=== PATIENT | female | born 1975 | race Caucasian/White ===

== ENCOUNTER 2025-06-07 13:08 | Emergency (ER) | payer BC, SELFPAY ==
--- OUTSIDE RECORDS SUMMARY | 2025-06-07 13:11 | XMS_ITS | Clinical Summary ---
Author Organization [facility] Address [address] [place] [address] Phone Care Team Providers Care Electronics Tech Name Role Phone Provider, None Primary Care Provider Unavailabl e Social History Tobacco Use Types Packs/Day Years Used Date Smoking Tobacco: Never Assessed Comments No Sex and Gender Information Value Date Recorded Sex Assigned at Not on file Legal Sex Female 10:22 PM CDT Gender Identity Not on file Sexual Orientation Not on file Plan of Treatment Health Maintenance Due Date Last Done Comments Hepatitis C Virus (HCV) Screening 1973 TdaP Immunization 1973 Hepatitis B Immunization (1 of 3 - 19+ 3-dose series) 02/12/1992 Colonoscopy 2018 Colorectal Cancer Screening 2018 Cologuard 2023 Immunochemical Fecal Occult Blood 2023 Pneumococcal Immunization (5 0+ years) (1 of 1 - PCV) 2023 Zoster Immunization (1 of 2) 2023 SARS-COV-2 Immunization (1 - 2023- season) 2024 Influenza Immunization (Seas on Ended) 2025 Respiratory Syncytial Virus (RSV) Immunization (Adult) (1 - 1-dose 75+ series) 02/12/2048 Discussion re Starting/Frequ ency of Mammograms Discontinued 09/16/2016 Mammogram Discontinued 09/16/2016 Human Papillomavirus (HPV) Immunization Aged Out No longer eligible b ased on patient's age to complete this topic Meningococcal Immunization (ACWY) Aged Out No longer eligible based on patient's age to complete this topic Rotavirus Immunization Aged Out No lo nger eligible based on patient's age to complete this topic Procedures Procedure Name Priority Date/Time Associated Diagnosis Comments MARIO SCREENING BILATERAL DIGITAL W CAD Routine 09/16/2016 5:46 PM CDT Visit for screening mammogram from Last 3 Months or Most Recently Relevant to Health Maintenance Results * MARIO SCREENING BILATERAL DIGITAL W CAD (09/16/2016 5:46 PM CDT) Anatomical Region Laterality Modality breast Bilateral Mammography 09/16/2016 5:35 PM CDT Narrative 09/28/2016 4:36 PM RUG INSPECTOR HELPER - MARIO SCREENING BILATERAL DIGITAL W CAD BILATERAL DIGITAL SCREENING MAMMOGRAM WITH CAD WITH MEDIOLATERAL OBLIQUE CRANIOCAUDAL: 09/16/2016 The study was acquired using digital technology and interpreted from soft copy. Current study was also evaluated with ICAD version 7.2. CLINICAL: Routine screening. Patient has no complaints. No personal history of cancer. No family history of breast cancer. COMPARISONS: Comparison is made to exams dated: 04/16/2014 and 04/09/2014 [facility]. BREAST TISSUE: The tissue of both breasts is predominantly fatty. FINDINGS: There are stable patchy benign densities in both breasts. No significant masses, calcifications, or other findings are seen in either breast. There has been no significant interval change. IMPRESSION: BI-RAD 2 BENIGN There is no mammographic evidence of malignancy. A 1 year screening mammogram is recommended. The patient has been or will be contacted. The patient will be entered into a reminder system with a target due date of 1 year for her next screening exam. Electronically signed by: María Lopez M.D. pw/:09/28/2016 15:15:42 Seasonal Clerk: Lorenza Yee(Hope), [facility] letter sent: Normal Exam Reading location: [facility] BI-RADS: 2 Benign Procedure Note María Lopez MD - 09/28/2016 - MARIO SCREENING BILATERAL DIGITAL W CAD BILATERAL DIGITAL SCREENING MAMMOGRAM WITH CAD WITH MEDIOLATERAL OBLIQUE CRANIOCAUDAL: 09/16/2016 The study was acquired using digital technology and interpreted from soft copy. Current study was also evaluated with ICAD version 7.2. CLINICAL: Routine screening. Patient has no complaints. No personal history of cancer. No family history of breast cancer. COMPARISONS: Comparison is made to exams dated: 04/16/2014 and 04/09/2014 [facility]. BREAST TISSUE: The tissue of both breasts is predominantly fatty. FINDINGS: There are stable patchy benign densities in both breasts. No significant masses, calcifications, or other findings are seen in either breast. There has been no significant interval change. IMPRESSION: BI-RAD 2 BENIGN There is no mammographic evidence of malignancy. A 1 year screening mammogram is recommended. The patient has been or will be contacted. The patient will be entered into a reminder system with a target due date of 1 year for her next screening exam. Electronically signed by: María Lopez M.D. pw/:09/28/2016 15:15:42 Seasonal Clerk: Lorenza Yee(R), [facility] letter sent: Normal Exam Reading location: [facility] BI-RADS: 2 Benign us Missy Sophie Wu MD IMG MAMMO ALLY DAVILA Final Result from Last 3 Months or Most Recently Relevant to Health Maintenance Care Teams Electronics Tech Relationship Specialty Start Date End Date Provider, None [place] PCP - General 09/13/16
--- OUTSIDE RECORDS SUMMARY | 2025-06-07 13:11 | XMS_ITS | Referral Summary ---
Author Organization [facility] Address [address] [place] [address] Care Team Providers Care Parole Hearing Officer Name Role Phone Demetrius Meadows MD Primary Care Provider [phone] Allergies Active Allergy Reactions Criticality Noted Date Comments Glatiramer Angioedema,Rash High 05/18/2018 Gadolinium-Containing Contrast Media Unknown 04/05/2019 Glatiramer (Copolymer 1) Angioedema,Rash High 2017 Medications multivitamin with iron tablet Take 1 tablet by mouth daily Active cetirizine (ZyrTEC) 10 mg tablet Take 1 tablet (10 mg total) by mouth daily Active montelukast (SINGULAIR) 10 mg tabletIndicatio ns:Cough Take 1 tablet (10 mg total) by mouth nightly 90 tablet 3 2 Active triamcinolone (KENALOG) 0.1 % cream APPLY TO AFFECTED AREA 1-2 TIMES DAILY NEEDED. AVOID FACE AND GROIN. 80 g 14 2 Active fluticasone furoate-vilante roL (Breo Ellipta) 200-25 mcg/dose diskus inhalerIndicati ons:Cough INHALE 1 PUFF DAILY RINSE MOUTH WITH WATER AFTER USE. DO NOT SWALLOW. 60 each 3 Active clobetasoL (TEMOVATE) 0.05 % ointmentIndicat ions:Chronic vulvitis APPLY TOPICALLY 2 (TWO) TIMES A WEEK 30 g 4 Active amantadine (SYMMETREL) 100 mg capsule 4 Active loteprednol (LOTEMAX) 0.5 % ophthalmic suspension 4 Active moxifloxacin (VIGAMOX) 0.5 % ophthalmic solution 4 Active fluticasone propionate (FLONASE) 50 mcg/actuation nasal spray Administer 2 sprays into each nostril daily 3 each 3 4 Active levothyroxine (SYNTHROID) 50 mcg tablet Take 1 tablet (50 mcg total) by mouth bag maker before breakfast 90 tablet [address] (CYMBALTA) 60 mg capsule Take 1 capsule (60 mg total) by mouth 2 (two) times a day 180 capsule 3 5 Active buPROPion XL (WELLBUTRIN XL) 300 mg 24 hr tablet Take 1 tablet (300 mg total) by mouth daily 90 tablet 3 5 Active ARIPiprazole (ABILIFY) 10 mg tablet Take 1 tablet (10 mg total) by mouth daily 90 tablet 3 5 Active Active Problems Problem Noted Date Diagnosed Date Screening for colon cancer 09/19/2024 Physical exam, annual 08/17/2024 Assessment & Plan (08/17/2024 8:54 AM CDT): Preventive exam; reviewed recommended preventive screenings and vaccinations. Encourage annual flu vaccine. -referral placed for screening colonoscopy. -Following with manager gyn annually -current on mammogram Thyroid nodule 05/21/2022 Low CD19 cell count determined by flow cytometry 03/19/2022 Upper respiratory infection, viral 01/05/2022 Assessment & Plan (01/05/2022 9:37 AM TALENT ACQUISITION PARTNER): Rapid flu swab: NEG as well as NEG rapid Covid test. You will need to take over the counter medications: Advise to use Mucinex and nasal saline to help with congestions and mucus. Add flonase 1 spray per nostril daily for the next 2 weeks. Continue Zyrtec daily for nasal drip Mucinex for chest congestion Sudafed for head/nasal congestion Drink plenty of fluids. May take Tylenol for pain. Contact PCP if not better in a few days or if getting worse. If symptoms worsen or you experience shortness of breath, return to clinic or go to ER Sore throat 01/05/2022 Assessment & Plan (01/05/2022 9:39 AM TALENT ACQUISITION PARTNER): NEG rapid strep test in office. Will send out for culture. Mrs Rouse aware to check mychart later this week for results/msg from me. Tylenol or ibuprofen for fever/pain Gargle with warm salt water (1tsp salt/1 cup water) Suck on ice chips, popsicles, cough drops, or throat lozenges May use otc chloraseptic spray. Reviewed red flags; to go to ER if any drooling or difficulty breathing. Push fluids, relative rest. Do not share food, drinks, or utensils Acute non-recurrent pansinusitis 01/14/2020 Acute rhinitis 01/14/2020 Assessment & Plan (01/14/2020 1:06 PM TALENT ACQUISITION PARTNER): Advised on the use of [id number] Flonase and antihistamines. Cervical intraepithelial neoplasia grade 2 10/23 Multiple sclerosis, relapsing-remitting 08/24/20 18 Assessment & Plan (08/17/2024 8:38 AM CDT): Managed by Neurology, holding off on surveillance brain MRI this year. Continues Ocrevus Post-dural puncture headache 11/08/2017 Spondylolisthesis, lumbosacral region 07/21/2017 BMI 29.0-29.9,adult 07/19/2017 Encounter for screening for other disorder 07/19 Fibromyalgia 01/29/2016 Acute bronchitis 01/29/2016 Allergic rhinitis due to pollen 01/29/2016 Assessment & Plan (08/17/2024 9:00 AM CDT): Recommended sinus irrigation, suggested using NeilMed sinus rinse. To use distilled water only. Also recommended Flonase nasal spray, 1-2 sprays 1-2 times per day. Avoid Afrin/oxymetazoline. Patient to notify office if no improvement in symptoms and can prescribe antibiotic at that time. She has now had intermittent congestion > 1 month. Generalized anxiety disorder 01/29/2016 Major depressive disorder with single episode Assessment & Plan (08/17/2024 8:53 AM CDT): Moods are stable; continue duloxetine and bupropion. No changes made today. Other mucopurulent conjunctivitis, bilateral 08/2016 Perimenopause 11/05/2015 Low back pain 02/17/2015 Leiomyoma of uterus, unspecified 08/22/2013 Resolved Problems Problem Noted Date Diagnosed Date Resolved Date Postcoital bleeding 10/06/2016 09/14/20 18 Left lower quadrant pain 02/17/2015 Immunizations Immunization Administration Dates Next Due Hep A, Adult 08/03/2010, 0,10/10/2008,10/10 Influenza, Quadrivalent, Spl it, Preservative Free, Intramuscular 11/08/2019,10/03/2018 Influenza, Unspecified 08/17/2024(Deferr ed: Patient Refused),08/21/2023(Deferred: Patient Refused),07/08/2023(Deferred: Patient Refused),07/08/2023(Deferred: Patient Refused),09/20/2022(Deferred: Patient Refused),08/21/2022(Deferred: Patient Refused),07/22/2022(Deferred: Patient Refused),07/22/2022(Deferred: Patient Refused),11/21/2021(Deferred: Patient Refused),08/21/2021(Deferred: Patient Refused),11/21/2020(Deferred: Patient Refused),08/17/2013 Pfizer SARS-CoV-2 Monovalent Vaccination (12+ Yrs) PURPLE 09/01/2021,08/11/2021 Social History Tobacco Use Types Packs/Day Years Used Date Smoking Tobacco: Former Cigarettes 0.1 1 0 11/2000 - 10/2001 Smokeless Tobacco: Never Tobacco Cessation:Counseling Given: Not Answered Alcohol Use Standard Drinks/Week Comments Yes 0 (1 standard drink = 0.6 oz pur e alcohol) [facility] Utilities Answer Date Recorded In the past 12 months has [employer], gas, oil, or water [employer] threatened to shut off services in your home? No 11/04/2023 Humiliation, Afraid, Rape, and Kick questionnair e Answer Date Recorded Within the last year, have y ou been afraid of your partner or ex-partner? No 11/04/2023 Within the last year, have y ou been humiliated or emotionally abused in other ways by your partner or ex-partner? No Within the last year, have y ou been kicked, hit, slapped, or otherwise physically hurt by your partner or ex-partner? No 11/04/2023 Within the last year, have y ou been raped or forced to have any kind of sexual activity by your partner or ex-partner? No 11/04/2023 Social Connection and Isolat ion Panel [NHANES] Answer Date Recorded In a typical week, how many times do you talk on the phone with family, friends, or neighbors? More than three times a week 11/04/2023 How often do you get togethe r with friends or relatives? More than three times a week 11/04/2023 How often do you attend [facility] or anglican services? More than 4 times per year 11/04/2023 Do you belong to any clubs o r organizations such as yazidism groups, unions, fraternal or athletic groups, or school groups? No 11/04/2023 How often do you attend meet ings of the clubs or organizations you belong to? Never 11/04/2023 Are you , , di vorced, , never , or living with a partner? 11/04/2023 AUDIT-C Answer Date Recorded Q1: How often do you have a drink containing alc ohol? 2-3 times a week 11/04/2023 Q2: How many drinks containi ng alcohol do you have on a typical day when you are drinking? 1 or 2 11/04/2023 Q3: How often do you have si x or more drinks on one occasion? Monthly 11/04/2023 Overall Financial Resource Strain (CARDIA) Answe r Date Recorded How hard is it for you to pa y for the very basics like food, housing, medical care, and heating? Not hard at all 11/04/2023 PHQ-2 Answer Date Recorded PHQ-2 Total Score (If total score is 3 or more points, staff should administer the PHQ-9) 0 08/17/2024 [facility] - Occupational Stress Questionnaire Answer Date Recorded Do you feel stress - tense, restless, nervous, or anxious, or unable to sleep at night because your mind is troubled all the time - these days? To some extent 11/04/2023 Exercise Vital Sign Answer Date Recorde d On average, how many days pe r week do you engage in moderate to strenuous exercise (like a brisk walk)? 4 days 11/04/2023 On average, how many minutes do you engage in exercise at this level? 40 min 11/04/2023 Hunger Vital Sign Answer Date Recorded Within the past 12 months, y ou worried that your food would run out before you got the money to buy more. Never true 11/04/20 23 Within the past 12 months, t he food you bought just didn't last and you didn't have money to get more. Never true 11/04/2023 PRAPARE - Transportation Answer Date Re corded In the past 12 months, has l ack of transportation kept you from medical appointments or from getting medications? No 10/21 In the past 12 months, has l ack of transportation kept you from meetings, work, or from getting things needed for daily living? No 11/04/2023 Housing Stability Vital Sign Answer Popeye e Recorded In the last 12 months, was t here a time when you were not able to pay the mortgage or rent on time? No 11/04/2023 In the last 12 months, how many places have you lived? 1 11/04/2023 In the last 12 months, was t here a time when you did not have a steady place to sleep or slept in a detention (including now)? No 11/04/2023 Personal Safety Answer Date Recorded Have you ever been in or are you currently in a harmful physical or emotional relationship or is someone making you feel afraid or unsafe? 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 on file Not on file Not on file Last Filed Vital Signs Vital Sign Reading Time Taken Comments Blood Pressure 119/83 01/09/2025 12:54 PM TALENT ACQUISITION PARTNER Pulse 65 01/09/2025 12:54 PM TALENT ACQUISITION PARTNER Temperature 36.6 C (97.8 F) 08/17/2024 8:27 AM CDT Respiratory Rate 16 12/13/2024 8:27 AM TALENT ACQUISITION PARTNER Oxygen Saturation 94% 08/17/2024 8:27 AM CDT Inhaled Oxygen Concentration - - Weight 76.2 kg (168 lb) 01/09/2025 12:54 PM TALENT ACQUISITION PARTNER Height 165.1 cm (5' 5) 01/09/2025 12:54 PM TALENT ACQUISITION PARTNER Body Mass Index 27.96 01/09/2025 12:54 PM TALENT ACQUISITION PARTNER Plan of Treatment Upcoming Encounters Date Type Department Care Team (Late st Contact Info) Description 07/16/2025 11:00 AM CDT Hospital Encounter [address] [address] Eric Quiñones DO [address] [address] [place] [address] [place] [id number] 07/16/2025 11:00 AM CDT - 07/16/2025 11:30 AM CDT Surgery [address] [address] Eric Quiñones DO [address] [facility] [place] [address] [place] [id number] COLONOSCOPY Scheduled Procedures Name Priority Associated Diagnoses Date/Ti me COLONOSCOPY Screening for colon cancer 07/16/2025 11:00 AM CDT Procedures Procedure Name Priority Date/Time Associated Diagnosis Comments DIAGNOSTIC MAMMOGRAM BILATERAL W ASCENCION Schedule Routine, Read Routine (OP Routine) 11/22/2024 12:28 PM TALENT ACQUISITION PARTNER Encounter for screening mammogram for malignant neoplasm of breast Abnormal mammogram of left breast PAP AND HPV, REFLEX TO HPV GENOTYPES Routine 08/04/2023 3:21 PM CDT Screening for cervical cancer from Last 3 Months or Most Recently Relevant to Health Maintenance Results * DIAGNOSTIC MAMMOGRAM BILATERAL W ASCENCION (11/22/2024 12:28 PM TALENT ACQUISITION PARTNER) Anatomical Region Laterality Modality Breast Bilateral Mammography 11/22/2024 12:4 2 PM TALENT ACQUISITION PARTNER Impressions 11/22/2024 1:44 PM TALENT ACQUISITION PARTNER 1. Calcifications in the left breast are benign. 2. No mammographic evidence of malignancy in either breast. OVERALL FINAL ASSESSMENT: BI-RADS Category 2: Benign. RECOMMENDATION: Annual screening mammography is recommended. Dr. Jaramillo discussed the above findings and recommendations with the patient, who expressed her understanding of the management plan. Dictated by: Zina Jaraimllo M.D. The radiology attending physician has personally reviewed this study, and had reviewed and/or edited this written report and agrees with it. Electronically signed by: Florinda Chance M.D. Narrative 11/22/2024 1:44 PM TALENT ACQUISITION PARTNER EXAMINATION: BILATERAL DIGITAL DIAGNOSTIC MAMMOGRAM INCLUDING CAD AND BILATERAL DIGITAL BREAST TOMOSYNTHESIS HISTORY: 49-year-old woman presenting for follow-up of probably benign calcifications in the left breast. COMPARISON: 05/21/2024 left mammogram and additional prior studies dating back to 2018. TECHNIQUE: Full field digital mammographic views of BOTH breasts were performed, including computer aided detection (CAD) and BILATERAL digital breast tomosynthesis (DBT). BREAST PARENCHYMAL COMPOSITION: There are scattered areas of fibroglandular density. MAMMOGRAM FINDINGS: There are grouped amorphous calcifications within the central outer left breast at posterior depth which are possibly layering on the lateral view and stable dating back to 10/20/2022. There are no new suspicious findings within either breast. Procedure Note Florinda Chance MD - 11/22/2024 EXAMINATION: BILATERAL DIGITAL DIAGNOSTIC MAMMOGRAM INCLUDING CAD AND BILATERAL DIGITAL BREAST TOMOSYNTHESIS HISTORY: 49-year-old woman presenting for follow-up of probably benign calcifications in the left breast. COMPARISON: 05/21/2024 left mammogram and additional prior studies dating back to 2018. TECHNIQUE: Full field digital mammographic views of BOTH breasts were performed, including computer aided detection (CAD) and BILATERAL digital breast tomosynthesis (DBT). BREAST PARENCHYMAL COMPOSITION: There are scattered areas of fibroglandular density. MAMMOGRAM FINDINGS: There are grouped amorphous calcifications within the central outer left breast at posterior depth which are possibly layering on the lateral view and stable dating back to 10/20/2022. There are no new suspicious findings within either breast. IMPRESSION: 1. Calcifications in the left breast are benign. 2. No mammographic evidence of malignancy in either breast. OVERALL FINAL ASSESSMENT: BI-RADS Category 2: Benign. RECOMMENDATION: Annual screening mammography is recommended. Dr. Jaramillo discussed the above findings and recommendations with the patient, who expressed her understanding of the management plan. Dictated by: Zina Jaramillo M.D. The radiology attending physician has personally reviewed this study, and had reviewed and/or edited this written report and agrees with it. Electronically signed by: Florinda Chance M.D. Marleny Farnsworth MANAGER MED SURG IMG MAMMO PROCEDURES Fi nal Result * Pap and HPV, reflex to HPV Genotypes (08/04/2023 3:21 PM CDT) CLINICAL INFORMATION: CIN2 IN 2018 [facility] LMP 07/25/2023 [facility] Previous Pap NONE GIVEN [facility] Prev. Bx NONE GIVEN [facility] SOURCE: Cervix, Endocervix [facility] Pap, specimen adequacy Satisfactory for evaluation. Endocervical/dias sformation zone component absent. [facility] HPV interp Cytology Results: Negative for intraepithelial lesion or malignancy. [facility] Infection: Shift in vaginal kell suggestive of bacterial vaginosis. [facility] Outpatient Coding Specialist MEF, CT(ASCP) CT screening location: [place] [address] [address] [id number] [facility] Review medical photographer ABC, CT(ASCP) CT screening location: [place] [address] [address] [address] [facility] [place] Comment [facility] Comment: EXPLANATORY NOTE: The Pap is a screening test for cervical cancer. It is not a diagnostic test and is subject to false negative and false positive results. It is most reliable when a satisfactory sample, regularly obtained, is submitted with relevant clinical findings and history, and when the Pap result is evaluated along with historic and current clinical information. EFFECTIVE OCTOBER 17, 2023, the version of ThinPrep you ordered, commonly known as manual ThinPrep, will be DISCONTINUED. An alternative form of ThinPrep, called ThinPrep Imaging, will continue to be available. For a copy of the client communication (TIS Client Letter) showing TIS test codes, see [email or web address], and navigate to [facility]oman>Physician Materials>TIS Client Letter. You can also call for test code assistance. Human papillomavirus DNA, High Risk E6/E7 Not Detected NOT DETECTED [facility] Comment: Not Detected High Risk HPV types (16,18,31,33,35,39,45,51,52, 56,58,59,66,68) were not detected. Other HPV types which cause anogenital lesions may be present. The significance of the other types of HPV in malignant processes has not been established. Methodology: Real Time PCR Thin prep 08/04/2023 3:21 PM CDT 08/04/2023 11:57 PM CDT Marleny Farnsworth NP LAB CYTOLOGY ORDERABLES Final Result [facility] [address] [place] [id number] [facility] [address] [place] [address] from Last 3 Months or Most Recently Relevant to Health Maintenance Insurance ANTHEM ACCESS CHOICE BLUE ACC CHOICE OOS ANTHEM ACCESS CHOICE Care Teams Parole Hearing Officer Relationship Specialty Start Date End Date [place] [address] PCP - General Family Medicine 01/03/19
--- OUTSIDE RECORDS SUMMARY | 2025-06-07 13:11 | XMS_ITS | Encounter Summary ---
Author Organization [facility] Address [address] [place] [address] Care Team Providers Care Glued Wood Tester Name Role Phone Demetrius Meadows MD Primary Care Provider [phone] Encounter Details Date Type Department Care Team (Late st Contact Info) Description 05/03/2025 Results Follow-Up [facility] Neurology [address] [place] [address] Eric Simpson MD [address] [place] [address] MRI BRAIN WO CONTRAST Social History Tobacco Use Types Packs/Day Years Used Date Smoking Tobacco: Never Smokeless Tobacco: Never Alcohol Use Standard Drinks/Week Comments Yes 0 (1 standard drink = 0.6 oz pur e alcohol) On occasion Comments Unknown Sex and Gender Information Value Date Recorded Sex Assigned at Not on file Legal Sex Female 5:41 AM COLOR CARD MAKER Gender Identity Not on file Sexual Orientation Not on file documented as of this encounter Miscellaneous Notes * Result Encounter Note - Eric Simpson MD - 05/03/2025 8:22 AM CDT Rima, I saw your MRI report and was very pleased. There are no new abnormalities. Let me know if you have any questions. Eric Simpson MD documented in this encounter Plan of Treatment Upcoming Encounters Date Type Department Care Team (Late st Contact Info) Description 10/03/2025 9:30 AM COLOR CARD MAKER Office Visit [facility] Neurology [address] [place] [address] Eric Simpson MD [address] [place] [address] 11/26/2025 9:00 AM COLOR CARD MAKER Procedure visit [facility] Neurology [address] [place] [address] documented as of this encounter Visit Diagnoses Not on filedocumented in this encounter Care Teams Glued Wood Tester Relationship Specialty Start Date End Date Demetrius Mead[place] [phone] PCP - General Family Practice 08/17/22 documented as of this encounter
--- OUTSIDE RECORDS SUMMARY | 2025-06-07 13:11 | XMS_ITS | Clinical Summary ---
Author Organization [facility] Address [address] [place] [address] Care Team Providers Care Nursing Scheduler Name Role Phone Eric Simpson MD Primary Care Provider [phone] Source Comments [facility],non-owned Affiliates and Associated Physician Practices is amultiple site organization consisting of ambulatory clinics and hospital sitesin [place], [place], [place] and [place]. This disclosure is being madepursuant to the Care Everywhere program and may not contain all information available regarding this patient. Last updated 18.[facility] Allergies Active Allergy Reactions Criticality Noted Date Comments Copaxone Rash,Angioedema High 05/18/2018 Medications * Be aware that medications may not be up to date on this document. Alwaysverify current medications with the patient. Teriflunomide (AUBAGIO) 14 MGIndications:Leticia ultiple Sclerosis Reasons: Multiple Sclerosis Active ARIPiprazole (ABILIFY) 5 MG tabletIndicatio ns:anxiety/depr ession Take 5 mg by mouth once daily Reasons: anxiety/depressi on Active buPROPion (WELLBUTRIN) 75 MG tabletIndicatio ns:depression Take 75 mg by mouth 2 times daily Reasons: depression Active DULoxetine (CYMBALTA) 60 MG capsuleIndicati ons:Major Depressive Disorder Take 60 mg by mouth once daily Reasons: Major Depressive Disorder Active pregabalin (LYRICA) 75 MG capsuleIndicati ons:Fibromyalgi a Syndrome Take 75 mg by mouth 3 times daily Reasons: Fibromyalgia Syndrome Active lidocaine visc 2%-diphenhydram ine 2.5mg/ml-alum&m g hydroxide 400/400 oral susp 1:1:1 suspensionIndic ations:Oral lichen planus Swish and spit 10 mL every 6 hours as needed 240 mL 8 Active Active Problems No known active problems Social History Tobacco Use Types Packs/Day Years Used Date Smoking Tobacco: Never Smokeless Tobacco: Never Comments No Sex and Gender Information Value Date Recorded Sex Assigned at Not on file Legal Sex Female 7:26 AM CDT Gender Identity Not on file Sexual Orientation Not on file Last Filed Vital Signs Vital Sign Reading Time Taken Comments Blood Pressure 122/84 05/18/2018 7:42 AM CDT Pulse 83 05/18/2018 7:42 AM CDT Temperature 37 C (98.6 F) 05/18/2018 7:42 AM CDT Respiratory Rate 20 05/18/2018 7:42 AM CDT Oxygen Saturation - - Inhaled Oxygen Concentration - - Weight 78.5 kg (173 lb) 05/18/2018 7:42 AM CDT Height 162.6 cm (5' 4) 05/18/2018 7:42 AM CDT Body Mass Index 29.7 05/18/2018 7:42 AM CDT Plan of Treatment Health Maintenance Due Date Last Done Comments COLOGUARD (AGES 45-75) - COL ON CA SCREENING 1973 COLON MONITORING 1973 COLONOSCOPY - COLON CA SCREENING 1973 CT COLONOGRAPHY - COLON CA SCREENING 1973 Colorectal Cancer Screening 1973 FIT - COLON CA SCREENING 1973 FLEX SIG - COLON CA SCREENING 1973 LIPID TESTING 1973 MAMMOGRAM 1973 HIV SCREENING 02/12/1988 HEPATITIS C SCREENING 02/07/1991 DTAP/TDAP/TD VACCINES (1 - Tdap) 02/12/1992 HEPATITIS B VACCINE (1 of 3 - 19+ 3-dose series) 02/12/1992 SCREENING FOR DIABETES 05/18/2018 PNEUMOCOCCAL VACCINE 50+ (1 of 1 - PCV) 2023 ZOSTER VACCINE (1 of 2) 2023 COVID-19 VACCINE (1 - 2023-2 5 season) 2024 DEPRESSION SCREENING 11/21/2024 INFLUENZA VACCINE (#1) 2025 HIB VACCINE Aged Out No longer eligi ble based on patient's age to complete this topic HPV VACCINE Aged Out No longer eligi ble based on patient's age to complete this topic MENINGOCOCCAL (Group B) VACC INE SHARED DECISION-MAKING Aged Out No longer eligibl e based on patient's age to complete this topic MENINGOCOCCAL GROUPS A/C/Y/W VACCINE Aged Out No longer eligible b ased on patient's age to complete this topic Insurance [facility] Care Teams Nursing Scheduler Relationship Specialty Start Date End Date Eric Simpson MD PCP - General Neurology 05/18/18
--- OUTSIDE RECORDS SUMMARY | 2025-06-07 13:11 | XMS_ITS | Clinical Summary ---
Author Organization [facility] Administrative Offices Address [address] [place] [address] Care Team Providers Care Hand Riveter Name Role Phone Demetrius Meadows MD Primary Care Provider [phone] Allergies Active Allergy Reactions Criticality Noted Date Comments Gadolinium-Containing Contrast Media Rash,Unknown Low 04/05/2019 Glatiramer (Copolymer 1) Angioedema,Rash High 2017 Medications ARIPiprazole (ABILIFY) 10 mg tablet Take 10 mg by mouth daily. 09/22/2022 Active buPROPion HCL (WELLBUTRIN XL) 300 mg Extended Release 24 hour tablet Take 300 mg by mouth daily. 09/22/2022 Active cetirizine (ZyrTEC) 10 mg tablet Take 10 mg by mouth daily. Active DULoxetine (CYMBALTA) 60 mg Capsule, Delayed Release(E.C.) Take 60 mg by mouth daily. Active fluticasone furoate-vilante roL (Breo Ellipta) 100-25 mcg/dose Disk with Device Active montelukast (SINGULAIR) 10 mg tablet 09/14/2022 Active multivitamins with iron Tablet Take 1 Tablet by mouth daily. Active ocrelizumab (OCREVUS IV) Active levothyroxine 50 mcg tablet Take 50 mcg by mouth daily. 07/28/2023 Active amantadine HCL (SYMMETREL) 100 mg Capsule Take 1 pill at 8 AM and 1 pill at noon daily. 60 Capsule 5 04/03/2024 Active baclofen (LIORESAL) 5 mg tabletIndicatio ns:Spasticity Take 1 Tablet (5 mg) by mouth nightly as needed (Muscle spasms). 90 Tablet 2 12/18/2024 Active Active Problems Problem Noted Date Diagnosed Date Multiple sclerosis, relapsing-remitting 09/26/20 22 Thyroid nodule 05/21/2022 Low CD19 cell count determined by flow cytometry 03/19/2022 Sore throat 01/05/2022 Overview (04/03/2024): Last Assessment & Plan: NEG rapid strep test in office. Will [...] Do not share food, drinks, or utensils Upper respiratory infection, viral 01/05/2022 Overview (04/03/2024): Last Assessment & Plan: Rapid flu swab: NEG as well as [...] return to clinic or go to ER Acute non-recurrent pansinusitis 01/14/2020 Acute rhinitis 01/14/2020 Overview (04/03/2024): Last Assessment & Plan: Advised on the use of [id number] Flonase and antihistamines. Cervical intraepithelial neoplasia grade 2 10/23 Post-dural puncture headache 11/08/2017 Spondylolisthesis, lumbosacral region 07/21/2017 Acute bronchitis 01/29/2016 Allergic rhinitis due to pollen 01/29/2016 Fibromyalgia 01/29/2016 Generalized anxiety disorder 01/29/2016 Major depressive disorder with single episode Other mucopurulent conjunctivitis, bilateral 08/2016 Perimenopause 11/05/2015 Low back pain 02/17/2015 Uterine leiomyoma 08/22/2013 Encounters Date Type Department Care Team Description 06/05/2025 External Device Data STL ABSTRACTION Provider, Abstract 06/04/2025 External Device Data STL ABSTRACTION Provider, Abstract 05/23/2025 9:00 AM CDT Procedure visit [facility] Neurology [address] [place] [address] Eric Simpson MD Multiple sclerosis, relapsing-remitting (CMS/HCC) (Primary Dx) 05/07/2025 External Device Data STL ABSTRACTION Provider, Abstract 05/03/2025 Results Follow-Up [facility] Neurology [address] [place] [address] Eric Smipson MD MRI BRAIN WO CONTRAST 05/02/2025 1:59 PM CDT - 05/02/2025 11:59 PM CDT Hospital Encounter [facility] [address] [place] [address] Eric Simpson MD Discharge Disposition: Home or Self Care 04/16/2025 Telephone [facility] Neurology [address] [place] [address] Cynthia Mcclendon, RN Helen Scott Start; Helen [address] 04/11/2025 External Device Data STL ABSTRACTION Provider, Abstract 04/09/2025 External Device Data STL ABSTRACTION Provider, Abstract 04/04/2025 9:30 AM CDT Office Visit [facility] Neurology [address] [place] [address] Eric Simpson MD Multiple sclerosis, relapsing-remitting (CMS/HCC) (Primary Dx); Vitamin D insufficiency from Last 3 Months Immunizations Immunization Administration Dates Next Due (PFIZER)(12 YR UP) COVID-19 VACCINE - EMERGENCY USE AUTHORIZATION, MRNA, [id number](PF) 30 MCG/0.3 ML IM SUSP 09/01/2021,08/11/2021 Hepatitis A Vaccine 08/03/2010,10/10/2008 INFLUENZA VACCINE QUADRIVALENT 6 MOS UP PF IM ,10/03/2018 Influenza, Unspecified Formulation 08/17/2013 Family History Medical History Relation Name Comments Stroke Father No Known Problems Mother Relation Name Status Comments Father Mother Social History Tobacco Use Types Packs/Day Years Used Date Smoking Tobacco: Never Smokeless Tobacco: Never Tobacco Cessation:Counseling Given: Not Answered Alcohol Use Standard Drinks/Week Comments Yes 0 (1 standard drink = 0.6 oz pur e alcohol) On occasion Comments Unknown Sex and Gender Information Value Date Recorded Sex Assigned at Not on file Legal Sex Female 5:41 AM INSIDE UPHOLSTERER Gender Identity Not on file Sexual Orientation Not on file Last Filed Vital Signs Vital Sign Reading Time Taken Comments Blood Pressure 110/69 05/23/2025 11:50 AM CDT Pulse 76 05/23/2025 11:50 AM CDT Temperature 36.6 C (97.8 F) 11/15/2023 10:27 AM INSIDE UPHOLSTERER Respiratory Rate 16 11/15/2023 10:2 7 AM INSIDE UPHOLSTERER Oxygen Saturation 98% 10/04/2023 8:45 AM INSIDE UPHOLSTERER Inhaled Oxygen Concentration - - Weight 75.2 kg (165 lb 12.8 oz) 04/04/2025 9:28 AM CDT Height - - Body Mass Index - - Plan of Treatment Upcoming Encounters Date Type Department Care Team (Late st Contact Info) Description 10/03/2025 9:30 AM INSIDE UPHOLSTERER Office Visit [facility] Neurology [address] [place] [address] Eric Simpson MD [address] [place] [address] 11/26/2025 9:00 AM INSIDE UPHOLSTERER Procedure visit [facility] Neurology [address] [place] [address] Health Maintenance Due Date Last Done Comments Pre-Diabetes and Diabetes Screening 1973 DTAP/TDAP/TD VACCINES (1 - Tdap) 02/12/1992 HEPATITIS B VACCINES (1 of 3 - 19+ 3-dose series) 02/12/1992 ZOSTER VACCINE (1 of 2) 02/12/1992 HPV/Cotest (21-29) 1994 CERVICAL CANCER SCREENING 2003 HPV/Cotest (30-65) 2003 PAP SMEAR 2003 COLORECTAL SCREENING 2018 Colorectal Cancer Screening 2018 FIT-DNA Q 3 years 2018 FIT/FOBT Q 1 year 2018 Flex Sig/CT Colonography Q 5 years 2018 COVID-19 Vaccine (3 - Pfizer risk series) 09/29/2021 09/01/2021, 08/11/2021 INFLUENZA VACCINE (#1) 2025 11/08/2019, 2017 BREAST CANCER SCREENING 11/22/2025 11/22/19, 05/21/2024, 10/06/2023, Additional history exists Procedures Procedure Name Priority Date/Time Associated Diagnosis Comments MRI BRAIN WO CONTRAST Routine 05/02/2025 2:52 PM CDT Multiple sclerosis, relapsing-remitting (CMS/HCC) VITAMIN D 25 HYDROXY Routine 04/04/2025 11:09 AM CDT Multiple sclerosis, relapsing-remitting (CMS/HCC) Vitamin D insufficiency IMMUNOGLOBULINS IGG IGA IGM Routine 04/04/2025 11:09 AM CDT Multiple sclerosis, relapsing-remitting (CMS/HCC) CBC WITH DIFFERENTIAL Routine 04/04/2025 11:09 AM CDT Multiple sclerosis, relapsing-remitting (CMS/HCC) from Last 3 Months Results * MRI BRAIN WO CONTRAST (05/02/2025 2:52 PM CDT) Anatomical Region Laterality Modality Head Magnetic Resonan ce 05/02/2025 2:52 PM CDT Impressions 05/02/2025 4:01 PM CDT IMPRESSION: Subtle T2/FLAIR hyperintense lesions in the brain are stable compared to 08/04/2023. DICTATION LOCATION: Location 1 - [facility] 05/02/2025 4:01 PM CDT EXAMINATION: MAGNETIC RESONANCE IMAGING (MRI) OF THE BRAIN WITHOUT CONTRAST DATE: 05/02/2025 2:52 PM HISTORY: Multiple sclerosis. TECHNIQUE: Multiplanar multi-weighted MRI of the brain was performed without intravenous contrast using the MS protocol. COMPARISON: 08/04/23. FINDINGS: PARENCHYMA: No midline shift or mass effect. No acute or chronic intracranial hemorrhage. No parenchymal restricted diffusion. Minimal T2/FLAIR hyperintensity adjacent to the frontal horn of the left lateral ventricle. Minimal faint FLAIR hyperintensity in the subcortical white matter of the parietal lobes adjacent to the atria of the lateral ventricles. Tiny T2/FLAIR hyperintense lesion in the right posterior insular region. All of this is unchanged. No new T2 hyperintense lesions in the brain parenchyma. VENTRICLES: Normal. EXTRA-AXIAL: No abnormal extra-axial collection. SOFT TISSUES: Normal. SINUSES: Moderate fluid and mucosal thickening in the left frontal sinus. Minimal mucosal thickening in the maxillary sinuses. MASTOID AIR CELLS: Clear. ORBITS: Normal. OSSEOUS STRUCTURES: Normal. VASCULAR: Normal. PITUITARY/SELLA: Normal. Procedure Note Loc Butler MD - 05/02/2025 EXAMINATION: MAGNETIC RESONANCE IMAGING (MRI) OF THE BRAIN WITHOUT CONTRAST DATE: 05/02/2025 2:52 PM HISTORY: Multiple sclerosis. TECHNIQUE: Multiplanar multi-weighted MRI of the brain was performed without intravenous contrast using the MS protocol. COMPARISON: 08/04/23. FINDINGS: PARENCHYMA: No midline shift or mass effect. No acute or chronic intracranial hemorrhage. No parenchymal restricted diffusion. Minimal T2/FLAIR hyperintensity adjacent to the frontal horn of the left lateral ventricle. Minimal faint FLAIR hyperintensity in the subcortical white matter of the parietal lobes adjacent to the atria of the lateral ventricles. Tiny T2/FLAIR hyperintense lesion in the right posterior insular region. All of this is unchanged. No new T2 hyperintense lesions in the brain parenchyma. VENTRICLES: Normal. EXTRA-AXIAL: No abnormal extra-axial collection. SOFT TISSUES: Normal. SINUSES: Moderate fluid and mucosal thickening in the left frontal sinus. Minimal mucosal thickening in the maxillary sinuses. MASTOID AIR CELLS: Clear. ORBITS: Normal. OSSEOUS STRUCTURES: Normal. VASCULAR: Normal. PITUITARY/SELLA: Normal. IMPRESSION: Subtle T2/FLAIR hyperintense lesions in the brain are stable compared to 08/04/2023. DICTATION LOCATION: Location 1 - [facility] Eric Simpson MD MR ORDERABLES Final Result * CBC WITH DIFFERENTIAL (04/04/2025 11:09 AM CDT) WBC 5.3 3.8 - 10.8 Thousand/u L [facility] RBC 3.85 3.80 - 5.10 Million/uL [facility] HEMOGLOBIN 12.3 11.7 - 15.5 g/dL [facility] HEMATOCRIT 37.9 35.0 - 45.0 % [facility] MCV 98.4 80.0 - 100.0 fL [facility] MCH 31.9 27.0 - 33.0 pg [facility] MCHC 32.5 32.0 - 36.0 g/dL [facility] Comment: For adults, a slight decrease in the calculated MCHC value (in the range of 30 to 32 g/dL) is most likely not clinically significant; however, it should be interpreted with caution in correlation with other red cell parameters and the patient's clinical condition. RDW 12.8 11.0 - 15.0 % [facility] PLATELETS 279 140 - 400 Thousand/u L [facility] MPV 10.4 7.5 - 12.5 fL [facility] NEUTROPHIL ABSOLUTE 2,968 1,500 - 7,800 cells/uL [facility] LYMPHOCYTE ABSOLUTE 1,627 850 - 3,900 cells/uL [facility] MONOCYTE ABSOLUTE 509 200 - 950 cells/uL [facility] EOSINOPHIL ABSOLUTE 127 15 - 500 cells/uL [facility] BASOPHILS ABSOLUTE 69 0 - 200 cells/uL [facility] NEUTROPHIL 56 % [facility] LYMPHOCYTES 30.7 % [facility] MONOCYTE 9.6 % [facility] EOSINOPHILS 2.4 % [facility] BASOPHILS 1.3 % [facility] Comment: FASTING:NO FASTING: NO Test Performed at: [facility] [address] [place] [id number] Ben Maciel MD Blood 04/04/2025 11:0 9 AM CDT 04/04/2025 11:09 AM CDT Eric Simpson MD HEMATOLOGY ORDERABLES Final Resu lt Performing Organization Address [facility]/ZIP Co de Phone Number [facility] [phone] [facility] [address] [facility] [place] [address] * VITAMIN D 25 HYDROXY (04/04/2025 11:09 AM CDT) VITAMIN D, 25 OH, TOTAL 64 30 - 100 ng/mL [facility] Comment: Vitamin D Status 25-OH Vitamin D: Deficiency: <20 ng/mL Insufficiency: 20 - 29 ng/mL Optimal: > or = 30 ng/mL For 25-OH Vitamin D testing on patients on D2-supplementation and patients for whom quantitation of D2 and D3 fractions is required, the [facility] 25-OH VIT D, (D2,D3), LC/MS/MS is recommended: order code 22066 (patients >2yrs). See Note 1 Note 1 For additional information, please refer to http://education.[employer]/faq/XCU694 (This link is being provided for informational/ educational purposes only.) FASTING:NO FASTING: NO Test Performed at: [facility] [address] [place] [address] Ben Maciel MD Blood 04/04/2025 11:0 9 AM CDT 04/04/2025 11:09 AM CDT Eric Simpson MD CHEMISTRY ORDERABLES Final Resul t Performing Organization Address City/[facility]/ZIP Co de Phone Number [facility] [phone] [facility] [place] [phone] * (ABNORMAL) IMMUNOGLOBULINS IGG IGA IGM (04/04/2025 11:09 AM CDT) IGA 411(H) 47 - 310 mg/dL [facility] IGG 968 600 - 1640 mg/dL [facility] IGM 142 50 - 300 mg/dL [facility] Comment: FASTING:NO FASTING: NO Test Performed at: [facility] [address] [place] [address] Ben Maciel MD Blood 04/04/2025 11:0 9 AM CDT 04/04/2025 11:09 AM CDT us Eric Simpson MD CHEMISTRY ORDERABLES Final Resul t [facility] [phone] [facility] [address] [place] [phone] from Last 3 Months Insurance [facility] [employer] Care Teams Hand Riveter Relationship Specialty Start Date End Date Demetrius Meadows MD [address] [place] [address] PCP - General Family Practice 08/17/22
--- OUTSIDE RECORDS SUMMARY | 2025-06-07 13:11 | XMS_ITS | Clinical Summary ---
Author Organization [facility] B Address [address] [place] [address] Care Team Providers Care Dynamotor Repairer Name Role Phone Demetrius Meadows MD Primary Care Provider [phone] Allergies Active Allergy Reactions Criticality Noted Date [...] 1 tablet (50 mcg total) by mouth banking management consulting manager before breakfast 90 tablet 4 Active DULoxetine [...] -referral placed for screening colonoscopy. -Following with coastal/harbor defense officer annually -current on mammogram Thyroid nodule 05/21/2022 Low CD19 cell count determined by flow cytometry 03/19/2022 Upper respiratory infection, viral 01/05/2022 Assessment & Plan (01/05/2022 9:37 AM ULTRASOUND SUPERVISOR): Rapid flu swab: NEG as well as [...] 01/05/2022 Assessment & Plan (01/05/2022 9:39 AM ULTRASOUND SUPERVISOR): NEG rapid strep test in office. Will [...] 01/14/2020 Assessment & Plan (01/14/2020 1:06 PM ULTRASOUND SUPERVISOR): Advised on the use of [id number] Flonase and antihistamines. Cervical intraepithelial neoplasia grade [...] SARS-CoV-2 Monovalent Vaccination (12+ Yrs) PURPLE 09/01/2021,08/11/2021 Surgical History Surgery Date Site/Laterality Comments TUBAL LIGATION LUMBAR FUSION CERVICAL BIOPSY W/ LOOP ELEC TRODE EXCISION 10/23/2018 COLPOSCOPY 09/21/2018 - 10/20/2018 ELICEO 2 Medical History Medical History Date Comments Fibromyalgia Multiple sclerosis (HCC) HPV (human papilloma virus) infection MAXX (generalized anxiety disorder) ASCUS with positive high risk HPV cervical MDD (major depressive disorder) Allergic rhinitis Cervical intraepithelial neoplasia (ELICEO) HSIL on Pap smear of cervix Family History Medical History Relation Name Comments Stroke Father No Known Problems Mother Breast cancer Neg Hx Ovarian cancer Neg Hx Thyroid cancer Neg Hx Relation Name Status Comments Father 06/30/19 d from CVA Mother Alive Social History Tobacco Use Types Packs/Day Years Used Date Smoking Tobacco: Former Cigarettes 0.1 1 0 11/2000 - 10/2001 Smokeless Tobacco: Never Tobacco Cessation:Counseling Given: Not Answered Alcohol Use Standard Drinks/Week Comments Yes 0 (1 standard drink = 0.6 oz pur e alcohol) [facility] Utilities Answer Date Recorded In the past 12 months has th e [employer], [employer], oil, or water [employer] threatened to shut off services in your [...] week 11/04/2023 How often do you attend chur or voodoo services? More than 4 times per year 11/04/2023 Do you belong to any clubs o r organizations such as christianity groups, unions, fraternal or athletic groups, or [...] staff should administer the PHQ-9) 0 08/17/2024 [facility] - Occupational Stress Questionnaire Answer Date Recorded [...] place to sleep or slept in a group home (including now)? No 11/04/2023 Personal Safety Answer Date Recorded Have you ever been in or are you currently in a harmful physical or emotional relationship or is someone making you feel afraid or unsafe? 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 Not on file Not on file Not on file Obstetrics History Para Term AB IAB SAB Ectopic Multiple Livin g Live Births 4 4 4 4 4 Date Outcome GA Total Labor Labor/2nd/3rd Weight Sex Type Anes PTL Rebecca A1 A5 Name Clin 1995 Term F Vag-S pont Living 1999 Term M Vag-S pont Living 2001 Term F Vag-S pont Living 2004 Term M Vag-S pont Living Last Filed Vital Signs Vital Sign Reading Time Taken Comments Blood Pressure 119/83 01/09/2025 12:54 PM ULTRASOUND SUPERVISOR Pulse 65 01/09/2025 12:54 PM ULTRASOUND SUPERVISOR Temperature 36.6 C (97.8 F) 08/17/2024 8:27 AM CDT Respiratory Rate 16 12/13/2024 8:27 AM ULTRASOUND SUPERVISOR Oxygen Saturation 94% 08/17/2024 8:27 AM CDT Inhaled Oxygen Concentration - - Weight 76.2 kg (168 lb) 01/09/2025 12:54 PM ULTRASOUND SUPERVISOR Height 165.1 cm (5' 5) 01/09/2025 12:54 PM ULTRASOUND SUPERVISOR Body Mass Index 27.96 01/09/2025 12:54 PM ULTRASOUND SUPERVISOR Plan of Treatment Upcoming Encounters Date Type Department Care Team (Late st Contact Info) Description 07/16/2025 11:00 AM CDT Hospital Encounter [address] [address] Eric Quiñones, [address] [place] [address] [place] [address] 07/16/2025 11:00 AM CDT - 07/16/2025 11:30 AM CDT Surgery [address] [address] Eric Quiñones, DO [address] [place] [address] COLONOSCOPY Scheduled Procedures Name Priority Associated Diagnoses Date/Ti me COLONOSCOPY Screening for colon cancer 07/16/2025 11:00 AM CDT Health Maintenance Due Date Last Done Comments Colon Cancer Screening-Colonoscopy 1975 Hepatitis C Screening 1973 DTaP/Tdap/Td Vaccine (1 - Tdap) 02/12/1984 Hepatitis B Screening 1991 Zoster Vaccine (1 of 2) 2023 Covid-19 Vaccine ( season) 2024 09/01/2021, 08/11/2021 Cervical Cancer Screening 08/04/20242022, 10/14/2020, 09/14/2018, Additional history exists Influenza Vaccine (Season Ended) 2025 11/08/2019, 10/03/2018, 08/17/2013 Depression Screening 08/17/2025 08/17/2024, 11/04/2023, 07/08/2023, Additional history exists Regular Well Visit/Exam 18-64 08/17/2025 08/17/2024, 08/04/2023, 07/08/2023, Additional history exists Breast Cancer Screening-Mammogram 11/22/2025 11/22/2024, 10/06/2023, 10/06/2023, Additional history exists Pneumococcal vaccine <65 Aged Out No longer eligible based on patient's age to complete this topic Procedures Procedure Name Priority Date/Time Associated Diagnosis Comments DIAGNOSTIC MAMMOGRAM BILATERAL W ASCENCION Schedule Routine, Read Routine (OP Routine) 11/22/2024 12:28 PM ULTRASOUND SUPERVISOR Encounter for screening mammogram for malignant neoplasm of breast Abnormal mammogram of left breast PAP AND HPV, REFLEX TO HPV GENOTYPES Routine 08/04/2023 3:21 PM CDT Screening for cervical cancer from Last 3 Months or Most Recently Relevant to Health Maintenance Results * DIAGNOSTIC MAMMOGRAM BILATERAL W ASCENCION (11/22/2024 12:28 PM ULTRASOUND SUPERVISOR) Anatomical Region Laterality Modality Breast Bilateral Mammography 11/22/2024 12:4 2 PM ULTRASOUND SUPERVISOR Impressions 11/22/2024 1:44 PM ULTRASOUND SUPERVISOR 1. Calcifications in the left breast are [...] Florinda Chance M.D. Narrative 11/22/2024 1:44 PM ULTRASOUND SUPERVISOR EXAMINATION: BILATERAL DIGITAL DIAGNOSTIC MAMMOGRAM INCLUDING CAD [...] signed by: Florinda Chance M.D. Marleny Farnsworth PRINTED CIRCUIT BOARD PANELS PLATER IMG MAMMO PROCEDURES Fi nal Result * Pap and HPV, reflex to HPV Genotypes (08/04/2023 3:21 PM CDT) CLINICAL INFORMATION: CIN2 IN 2018 [facility] LMP 07/25/2023 [facility] Previous Pap NONE GIVEN [facility] Prev. Bx NONE GIVEN [facility] SOURCE: Cervix, Endocervix [facility] Pap, specimen adequacy Satisfactory for evaluation. Endocervical/dias sformation zone component absent. [facility] HPV interp Cytology Results: Negative for intraepithelial lesion or malignancy. [facility] Infection: Shift in vaginal kell suggestive of bacterial vaginosis. [facility] Cam Milling Machine Operator MEF, CT(ASCP) CT screening location: [place] [address] [address] [address] [facility] Review hose operator ABC, CT(ASCP) CT screening location: [place] [address] [address] [address] [facility] Comment [facility] Comment: EXPLANATORY NOTE: The Pap is a [...] Client Letter) showing TIS test codes, see [email or web address]/Resources, and navigate to Well-Woman>Physician Materials>TIS Client Letter. You can also call for test code assistance. Human papillomavirus DNA, High Risk E6/E7 Not Detected NOT DETECTED [facility] Comment: Not Detected High Risk HPV types (16,18,31,33,35,39,45,51,52, 56,58,59,66,68) were not detected. Other HPV types which cause anogenital lesions may be present. The significance of the other types of HPV in malignant processes has not been established. Methodology: Real Time PCR Thin prep 08/04/2023 3:21 PM CDT 08/04/2023 11:57 PM CDT Marleny Farnsworth NP LAB CYTOLOGY ORDERABLES Final Result [facility] [address] [place] [address] [facility] [address] [facility] [place] [address] from Last 3 Months or Most Recently Relevant to Health Maintenance Insurance ANTHEM ACCESS CHOICE BLUE ACC CHOICE OOS ANTHEM ACCESS CHOICE Care Teams Dynamotor Repairer Relationship Specialty Start Date End Date [place] [address] PCP - General Family Medicine 01/03/19
--- OUTSIDE RECORDS SUMMARY | 2025-06-07 13:11 | XMS_ITS | Encounter Summary ---
Author Organization [facility] Address [address] [place] [address] Care Team Providers Care Labor Service Representative Name Role Phone Demetrius Meadows MD Primary Care Provider [phone] Encounter Details Date Type Department Care Team (Late st Contact Info) Description 06/05/2025 External Device Data ST[facility] ABSTRACTION Provider, Abstract NO ADDRESS ON FILE Social History Tobacco Use Types Packs/Day Years Used Date Smoking Tobacco: Never Smokeless Tobacco: Never Alcohol Use Standard Drinks/Week Comments Yes 0 (1 standard drink = 0.6 oz pur e alcohol) On occasion Comments Unknown Sex and Gender Information Value Date Recorded Sex Assigned at Not on file Legal Sex Female 5:41 AM SNUFF GRINDER AND SCREENER Gender Identity Not on file Sexual Orientation Not on file documented as of this encounter Plan of Treatment Upcoming Encounters Date Type Department Care Team (Late st Contact Info) Description 10/03/2025 9:30 AM SNUFF GRINDER AND SCREENER Office Visit [facility] [address] [place] [address] [place] [address] Eric Simpson MD [address] [place] [address] 11/26/2025 9:00 AM SNUFF GRINDER AND SCREENER Procedure visit [facility] [address] [place] [address] [place] [address] documented as of this encounter Visit Diagnoses Not on filedocumented in this encounter Care Teams Labor Service Representative Relationship Specialty Start Date End Date Demetrius [place] [address] [address] PCP - General Family Practice 08/17/22 documented as of this encounter
--- OUTSIDE RECORDS SUMMARY | 2025-06-07 13:12 | XMS_ITS | Patient Health Record ---
Author Organization [facility] Address [address] [place] [phone] Support Name Relationship Address Phone Rima Rouse Guarantor Unknown Unavailable Allergies No Known Allergies Reason For Referral No Information Medications Medication SIG (Take, Route, Frequency, Duration) Notes Start Date End Date Status Ocrevus Active Amoxicillin-Pot Clavulanate 875-125 MG 1 tablet Orally every 12 hrs for 10 day(s) 06/14/2022 Active Pneumovax 23 25 MCG/0.5ML as directed In jection once for 30 days 08/10/2022 Active Symbicort 80-4.5 MCG/ACT 2 puffs Inhalat ion Twice a day for 30 days 06/14/2022 Active Abilify Active Albuterol Sulfate HFA 108 (90 Base) MCG/ACT 2 puff as needed Inhalation every 4 hrs for 30 days 05/17/2022 Active buPROPion HCl Active Cymbalta Active ZyrTEC Allergy Activ e Problems Problem Type SNOMED Code ICD Code Onset Dates Problem Status W/U Status Risk Notes Problem Chronic rhinitis (96034700) Chronic rhinitis (J31.0) Active confirmed Plan Of Treatment Pending Test Test Name Order Date Immunoglobulins A/E/G/M, Serum 2 CBC With Differential/Platelet 2 Tetanus/Diphtheria Ab 08/02/2022 immunoglobulin G subclasses 08/02/2022 Streptococcus pneumoniae Antibody (IgG) (23 Serotypes) 08/02/2022 Insurance Providers Payer Name Payer Address Payer Phone Subscriber Number Group Number Insured Name Patient Relationship to Insured Coverage Start Date Coverage End Date [employer] [address] [place], [place] [id number] Rima Rouse Self - patient is the insured Medical (General) History Medical History History ICD Code chronic rhinitis MS depression anxiety
--- OUTSIDE RECORDS SUMMARY | 2025-06-07 13:12 | XMS_ITS | Clinical Summary ---
Author Organization [facility] Address [address] [place] [address] Care Team Providers Care Pull Over Name Role Phone Unavailable Primary Care Provider Unavailabl e Social History Tobacco Use Types Packs/Day Years Used Date Smoking Tobacco: Never Assessed Comments Unknown Sex and Gender Information Value Date Recorded Sex Assigned at Not on file Legal Sex Female 2:41 PM CDT Gender Identity Not on file Sexual Orientation Not on file Plan of Treatment Health Maintenance Due Date Last Done Comments Cervical Cancer Screening Pa p Smear (Age 30 to 64) Every 3 Years 1973 Colorectal Cancer Screening Colonoscopy (10 Years) 1973 Annual Physical 02/12/1976 Hepatitis C 1991 DTaP, Tdap and Td Vaccines ( 1 - Tdap) 02/12/1992 Hepatitis B Vaccines (1 of 3 - 19+ 3-dose series) 02/12/1992 Cervical Cancer Screening Pa p with HPV Testing (Age 30 to 64) Every 5 Years 2003 Cervical Cancer Screening with HPV 2003 Mammogram Screening 2013 Pneumococcal Vaccine: 50+ Ye ars (1 of 1 - PCV) 2023 Zoster Vaccines (1 of 2) 2023 COVID-19 Vaccine ( - 2023-2 5 season) 2024 Meningococcal B Vaccine Aged Out No l onger eligible based on patient's age to complete this topic Meningococcal Vaccine Aged Out No sisi victoria eligible based on patient's age to complete this topic RSV Immunizations Under 20 Months Aged Out No longer eligible based on patient's age to complete this topic
[2025-06-07 13:16] VITALS: BP 131/93; PULSE 79; RESP 16; TEMP 36.9; O2SAT 100
--- NOTE | 2025-06-07 13:20 | ED_ITS ---
HPI - URI/Sore Throat General Chief Complaint: Upper Respiratory Infection Stated Complaint: cough/sinus Time Seen by Provider: 06/07/25 13:27 Source: patient and RN notes reviewed Mode of arrival: ambulatory Limitations: no limitations History of Present Illness HPI Narrative: 50-year-old female presents with concern for 2 week history of cough, sore throat, sinus drainage and congestion. She reports she has been taking prednisone for the symptoms for 4-5 days. She denies fever, aches, chills, sweats. She reports she also taking Sudafed. MD elicited complaint: cough and nasal congestion Related Data Home Medications ?Medication ?Instructions ?Recorded ?Confirmed ?Last Taken ?Type aripiprazole 10 mg tablet mg 06/07/25 Unknown History bupropion HCl 300 mg 24 hr tablet, mg PO 06/07/25 Unknown History extended release duloxetine 60 mg capsule,delayed mg PO 06/07/25 Unknown History release prednisone 5 mg tablet mg 06/07/25 Unknown History Allergies Allergy/AdvReac Type Severity Reaction Status Date / Time No Known Allergies Allergy Mild Verified 06/07/25 13:22 Review of Systems Review of Systems: CONSTITUTIONAL: Denies malaise, chills, sweats, or fever. EYES: Denies visual changes, redness, or discharge. ENT: Reports rhinorrhea, congestion, sinus pain, and sore throat. CARDIOVASCULAR: Denies chest pain, palpitations, or edema. RESPIRATORY: Reports dry persistent cough. Denies dyspnea. GASTROINTESTINAL: Denies abdominal pain, nausea, vomiting, diarrhea SKIN: Denies rash or itching. MUSCULOSKELETAL: Denies myalgia. NEUROLOGIC: Denies headache. All systems reviewed & are unremarkable except as noted in HPI and below PMFSH Comments At time of signature, agree with nursing past medical, surgical, social and family history. There is no relevant family history pertinent to the presenting complaint Exam Narrative: GENERAL: Well-appearing, well-nourished, and in no acute distress. HEAD: Normocephalic EYES: PERRLA, conjunctivae clear ENT: Nares clear, turbinates edematous and erythematous. Mucous membranes moist. TM pearly dawson with dull light reflex bilaterally; no tragal tenderness. Oropharynx not erythematous without lesions. Tonsils not enlarged and without exudate, no drooling, no hoarseness, no trismus, uvula midline. NECK: Supple. No lymphadenopathy CHEST: Clear to auscultation, breath sounds equal. No wheezing, rhonchi, rales, or stridor. No respiratory distress, speaks in full sentences. Cough noted HEART: Regular rate and rhythm. No murmur heard. SKIN: Warm, dry, no rash. NEURO: Alert and oriented x3. PSYCH: Normal mood and affect Course Course Emergency Course: Patient is aware of diagnosis, understands and agrees to treatment plan. Anticipatory guidance given. Patient agrees to follow-up as directed and is aware of reasons to seek care at the emergency department. Portions of this record may have been created with voice recognition software Level of Care: Express Care Visit Vital Signs Vital signs: Vital Signs Temperature 98.5 F 06/07/25 13:16 Pulse Rate 79 06/07/25 13:16 Respiratory Rate 16 06/07/25 13:16 Blood Pressure 131/93 H 06/07/25 13:16 Pulse Oximetry 100 06/07/25 13:16 Oxygen Delivery Room Air 06/07/25 13:16 Temperature 98.5 F 06/07/25 13:16 Pulse Rate 79 06/07/25 13:16 Respiratory Rate 16 06/07/25 13:16 Blood Pressure 131/93 H 06/07/25 13:16 Pulse Oximetry 100 06/07/25 13:16 Oxygen Delivery Room Air 06/07/25 13:16 Reviewed. MDM - URI/Sore Throat MDM Narrative Medical decision making narrative: Differential diagnosis considered: Schumacher virus, strep pharyngitis, allergic rhinitis, upper respiratory tract infection, sinusitis, rhinosinusitis, nasopharyngitis. viral pharyngitis, otitis media, otitis externa, pneumonia, bronchitis, viral cough syndrome, viral syndrome, and influenza. Exam findings show no acute concerns or changes; patient is non-toxic appearing and is in no distress. Patient is appropriate for outpatient treatment and follow-up. Lab Data Attestation: I reviewed the patient's lab results. Critical Care Time Critical Care Time Critical Care Time: No Discharge Plan Discharge Clinical Impression: Sinobronchitis Patient Disposition: Home Condition: Stable Instructions: Antibiotic Form, Sinusitis (ED), Acute Bronchitis (ED) Additional Instructions: Take medications as prescribed Recommend antihistamine such as Benadryl at night time and Zyrtec or Svetlana during the day Cough syrup may cause drowsiness; avoid driving or take it at night time. Also, recommend symptomatic treatment includes: rest, fluids, and increase humidity of the air at home. Recommend Acetaminophen as directed on the bottle to reduce fever, pain, headache. Avoid smoking/second-hand smoke. Please schedule a follow-up visit with your personal physician for further e valuation and treatment within 3-5days. Including recheck and discussion of your blood pressure. If your symptoms persist, change or worsen significantly before you can contact your personal physician then please, without delay, go to the emergency department for further evaluation. Patient Language: Saudi Arabian Prescriptions: New promethazine-DM 6.25-15 mg/5 mL syrup 5 ml PO Q4-6H PRN (Reason: cough) Qty: 120 0RF doxycycline monohydrate 100 mg tablet 100 mg PO BID 7 Days Qty: 14 0RF No Action prednisone 5 mg tablet bupropion HCl 300 mg tablet extended release 24 hr PO duloxetine 60 mg capsule,delayed release(DR/EC) PO aripiprazole 10 mg tablet Follow-up/Referrals: Harms,Demetrius Sandoval M.D. [Primary Care Provider] - Time of Disposition: 13:37
[2025-06-07 14:37] LABS: EDSTREPNEGPOS1 Negative (Negative)
== END 2025-06-07 13:45 | disposition home or self-care (01) ==
PROVIDERS: Emergency Provider Nurse Practitioner; PCP Family Medicine
DX: J32.9 Chronic sinusitis, unspecified (principal); J40 Bronchitis, not specified as acute or chronic; G35 Multiple sclerosis
CPT/HCPCS: 87081; 87880; 99213; G0463